=== PATIENT | female | born 1945 | race Caucasian/White ===

== ENCOUNTER → 2020-04-26 | Outpatient (CLI) | payer OTHER, BC | LOC: SJCVC 10:07 | PROVIDERS: ATTEND Internal Medicine Cardiovascular Disease | DX: I10 Essential (primary) hypertension (principal); E78.00 Pure hypercholesterolemia, unspecified; E11.9 Type 2 diabetes mellitus without complications; I63.9 Cerebral infarction, unspecified; Z79.899 Other long term (current) drug therapy ==

== ENCOUNTER → 2020-05-27 | Outpatient (CLI) | payer OTHER, BC | LOC: SJCVCIMAG 08:26 | PROVIDERS: ATTEND Internal Medicine Cardiovascular Disease | DX: I65.23 Occlusion and stenosis of bilateral carotid arteries (principal); R00.0 Tachycardia, unspecified; I49.3 Ventricular premature depolarization; I10 Essential (primary) hypertension; Z79.899 Other long term (current) drug therapy ==

== ENCOUNTER → 2021-02-28 | Outpatient (CLI) | payer OTHER | LOC: SJCVC 13:02 | PROVIDERS: ATTEND Internal Medicine Cardiovascular Disease | DX: I10 Essential (primary) hypertension (principal); E78.00 Pure hypercholesterolemia, unspecified; E11.9 Type 2 diabetes mellitus without complications; R10.13 Epigastric pain; M85.88 Other specified disorders of bone density and structure, other site; Z86.73 Personal history of transient ischemic attack (TIA), and cerebral infarction without residual deficits; Z79.899 Other long term (current) drug therapy; Z88.2 Allergy status to sulfonamides; Z88.8 Allergy status to other drugs, medicaments and biological substances; Z88.1 Allergy status to other antibiotic agents ==